=== PATIENT | male | born 1970 | race Caucasian/White ===

== ENCOUNTER 2021-10-09 18:39 | Emergency (ER) | payer SELFPAY ==
[2021-10-09 18:48] VITALS: BP 176/103; PULSE 68; RESP 16; TEMP 36.5; O2SAT 97; BMI 25.1
--- NOTE | 2021-10-09 20:11 | ED_ITS ---
HPI - General Adult General Chief complaint: Dental/Oral Stated complaint: absess tooth infection-jaw pain Time Seen by Provider: 10/09/21 20:04 Source: patient Mode of arrival: Ambulatory History of Present Illness HPI narrative: 61-year-old male who is here for evaluation of a couple days of right-sided jaw discomfort. He stated that today he a sudden discharge of a ?glob? from the right side of the back of his mouth and then has had bleeding since then. Initially stated that he had increasing in pain but then now he states that things have actually improved somewhat. The swelling that was on the right jaw region has improved. No ear pain. No fevers. No trouble swallowing. No problems breathing. No tooth pain. Related Data Previous Rx's Medication Instructions Recorded clindamycin HCl 300 mg capsule 300 mg PO QID 7 Days #28 cap 10/09/21 Allergies Allergy/AdvReac Type Severity Reaction Status Date / Time No Known Drug Allergies Allergy Verified 10/09/21 18:55 Review of Systems Constitutional Constitutional: Denies chills, Denies fever(s) and Denies headache(s) ENT Ears, Nose, Mouth, and Throat: Reports system reviewed and no additional complaints, except as documented, Denies vertigo, Denies dizziness and Denies headache(s) Respiratory Respiratory: Reports system reviewed and no additional complaints, except as documented Integumentary/Breasts Skin/Breast: Reports system reviewed and no additional complaints, except as documented Neurologic Neurologic: Denies vertigo, Denies dizziness and Denies headache(s) Hematologic/Lymphatic On Anticoagulants: No Patient History Medical History Healthy adult Social History Smoking Status: Current every day smoker Smoking Status: Current every day smoker tobacco type: cigarettes alcohol intake frequency: 3 or more drinks per day Alcohol type: beer Substance Use Type: marijuana Exam Initial Vital Signs Initial Vital Signs: Vital Signs Temperature 97.7 F 10/09/21 18:48 Pulse Rate 68 10/09/21 18:48 Respiratory Rate 16 10/09/21 18:48 Blood Pressure 176/103 H 10/09/21 18:48 Pulse Oximetry 97 10/09/21 18:48 HENMT Head: normal to inspection and normocephalic Ears: TM's normal bilaterally Teeth and gingiva: dentition normal Other HENMT:: Patient does have a 1/2 cm opening in the right peritonsillar region that does have both purulent and bloody discharge. Neck Other: Right-sided anterior cervical and sub mandibular swelling. Resp Effort & Inspection: normal respiratory effort Skin Other: No external skin changes. Course Orders Ordered: Discontinued Medications Clindamycin HCl (Clindamycin 150 Mg Capsule) 300 mg PO NOW ONE Stop: 10/09/21 20:13 Last Admin: 10/09/21 20:31 Dose: 300 mg Documented by: VIDA Vital Signs Vital signs: Vital Signs - 8 hr 10/09/21 18:48 Temperature 97.7 F Pulse Rate 68 Respiratory Rate 16 Blood Pressure 176/103 H Pulse Oximetry 97 Medical Decision Making [facility] Narrative Medical decision making narrative: Patient's physical exam is consistent with a peritonsillar abscess that has spontaneously drained in to his right posterior oropharynx. He has no respiratory distress. The opening the back of his throat is approximately 1/2 cm and is currently draining. I feel that opening this further with an incision would not be beneficial. He is nontoxic appearing. Plan of his to place him on antibiotics. He will do warm water gargles. He was given strict return precautions. He expressed understanding and agreement. Discharge Plan Departure Patient Disposition: Home Clinical Impression: Peritonsillar abscess Instructions: DI for Peritonsillar Abscess -- Adult Activity Restrictions/Additional Instructions: I recommend warm water gargles. Take the antibiotics as directed. No restrictions on diet. Return to the emergency department for any new or worsening symptoms. Prescriptions: New clindamycin HCl 300 mg capsule 300 mg PO QID 7 Days Qty: 28 0RF
[2021-10-09] MEDS: CLINDAMYCIN 150 MG CAPSULE 300 MG PO (20:31)
--- NOTE | 2021-10-09 20:42 | PC.NURSE ---
Pt assessed by Dr Hidalgo without RN involvement.
== END 2021-10-09 20:33 | disposition home or self-care (01) ==
PROVIDERS: Emergency Provider Emergency Medicine
DX: J36 Peritonsillar abscess (principal)
CPT/HCPCS: 99283